=== PATIENT | female | born 1960 | race Hispanic/Latino ===

== ENCOUNTER 2021-10-25 10:56 | Outpatient (CLI) | payer OTHER ==
--- NOTE | 2021-10-25 13:29 | XRay Report ---
Right elbow, 3 views HISTORY: Right elbow pain COMPARISON: None FINDINGS: No acute fracture or malalignment. No significant arthritis. No significant joint capsular distention. Soft tissues are unremarkable. IMPRESSION: No significant abnormality of the right elbow. Signer Name: Jose Chen MD Signed: 10/25/2021 1:24 PM Workstation Name: [email or web address]
--- NOTE | 2021-10-25 13:29 | XRay Report ---
XR hand BILAT 3+V INDICATION / CLINICAL INFORMATION: BILATERAL HAND PAIN. COMPARISON: None available. FINDINGS: Right hand: No acute fracture or malalignment. Mild osteoarthritis of the thumb CMC joint and scatter ed DIP joints. No osseous erosions. No focal soft tissue abnormality. Left hand: No acute fracture. Small corticated ossific density at the distal tip of the ulnar styloid likely reflects sequela of prior trauma. Mild thumb CMC and STT osteoarthritis. Mild scattered dista l interphalangeal joint osteoarthritis. No osseous erosions. No focal soft tissue abnormality. IMPRESSION: 1. No acute findings. 2. Mild bilateral hand osteoarthritis, as above. Signer Name: Jose Chen MD Signed: 10/25/2021 1:24 PM Workstation Name: [email or web address]
== END 2021-10-25 10:57 | disposition home or self-care (01) ==
LOC: LAB 10:56
PROVIDERS: ATTEND Internal Medicine
DX: M19.042 Primary osteoarthritis, left hand (principal); M19.041 Primary osteoarthritis, right hand; M25.521 Pain in right elbow
CPT/HCPCS: 36415; 84550